=== PATIENT | female | born 1995 | race Caucasian/White ===

== ENCOUNTER 2021-02-23 09:31 | Inpatient (IN) ==
[2021-02-23] MEDS ORDERED: Famotidine 20 MG/2 ML VIAL IVP ONE (09:41)
[2021-02-23] MEDS ORDERED: Oxytocin 20 units/ LR 1000 mL 20 UNIT/1,000 ML BAG IVC ONE (09:41)
[2021-02-23] MEDS ORDERED: Metoclopramide 10 MG/2 ML VIAL IVP ONE (09:41)
[2021-02-23] MEDS ORDERED: Ringers Solution, Lactated 1,000 ML IVC ONE (09:41)
[2021-02-23] MEDS ORDERED: CeFAZolin 2,000 MG/120 ML BAG IVPB ONE (09:41)
[2021-02-23] MEDS ORDERED: Ringers Solution, Lactated 1,000 ML IVC SCH ×3 (09:45→16:56)
[2021-02-23 10:41] LABS: Amphetamine Screen,Urine Negative ng/mL (Cutoff=1000); Barbiturate Screen,Urine Negative ng/mL (Cutoff=200); Benzodiazepines Screen,Urine Negative ng/mL (Cutoff=200); Cannabinoid Screen,Urine Negative ng/mL (Cutoff = 50); Cocaine Screen,Urine Negative ng/mL (Cutoff= 300); Opiate Screen,Urine Negative ng/mL (Cutoff=300); Phencyclidine Screen,Urine Negative ng/mL (Cutoff=25)
[2021-02-23] MEDS ORDERED: Ondansetron 4 MG/2 ML VIAL IVP PRN ×2 (10:46→16:56)
[2021-02-23] MEDS ORDERED: *HR* HYDROmorphone PF 0.5 MG/0.5 ML SYRINGE IVP PRN (10:46)
[2021-02-23] MEDS ORDERED: Promethazine 6.25 MG in Water for inj. (sterile) 20 ML IVPB PRN (10:46)
[2021-02-23 10:51] LABS: Basophils % 0.3 %; Eosinophils % 0.3 %; Hematocrit 34.1 % (35.3-44.9); Immature Granulocytes % 0.4 % (0-4); Lymphocytes # 1.2 K/mcL (0.6-4.6); Lymphocytes % 15.4 %; Mean Corpuscular HGB Conc 32.3 g/dL (31.6-35.5); Mean Corpuscular Volume 83.6 fL (83.0-100.0); Mean Platelet Volume 10.2 fL (9.4-12.4); Monocytes # 0.5 K/mcL (0.0-1.3); Monocytes % 6.1 %; Neutrophils # 6.2 K/mcL (1.6-8.9); Platelet Count 275 K/mcL (140-400); Red Blood Count 4.08 M/mcL (3.82-4.97); Red Cell Distribution Width 13.8 % (11.5-14.5); Segmented Neutrophils % 77.5 %
[2021-02-23 11:05] LABS: Influenza A PCR Negative (Negative); Influenza B PCR Negative (Negative); Resp. Syncytial Virus PCR Negative (Negative); SARS-CoV-2 by PCR (In House) Negative (Negative)
[2021-02-23] MEDS ORDERED: EPHEDrine 50 MG/ML VIAL ONE (11:46)
[2021-02-23] MEDS ORDERED: *HR* Morphine Sulfate/PF 10 MG/10 ML AMPUL ONE (11:46)
[2021-02-23] MEDS ORDERED: Ondansetron 4 MG/2 ML VIAL ONE (11:46)
[2021-02-23] MEDS ORDERED: *HR* FentaNYL (PF) 100 MCG/2 ML VIAL ONE (11:46)
[2021-02-23] MEDS ORDERED: Acetaminophen IV 1,000 MG/100 ML BAG IVPB ONE (11:47)
[2021-02-23] MEDS ORDERED: Simethicone 80 MG TAB.CHEW PO PRN (16:56)
[2021-02-23] MEDS ORDERED: Metoclopramide 10 MG/2 ML VIAL IVP PRN (16:56)
[2021-02-23] MEDS ORDERED: Oxytocin 20 units/ LR 1000 mL 20 UNIT/1,000 ML BAG IVC SCH (16:56)
[2021-02-23] MEDS ORDERED: *HR* OxyCODONE Immed Rel 5 MG TABLET PO PRN (16:56)
[2021-02-23] MEDS: Acetaminophen 325 MG TABLET PO SCH (19:55)
[2021-02-24] MEDS: Ibuprofen 600 MG TABLET PO SCH ×3 (00:03→12:37)
[2021-02-24] MEDS: Acetaminophen 325 MG TABLET PO SCH ×3 (03:34→15:24)
[2021-02-24 04:29] LABS: Basophils % 0.3 %; Eosinophils % 0.1 %; Hematocrit 24.9 % (35.3-44.9); Immature Granulocytes % 0.3 % (0-4); Lymphocytes # 1.7 K/mcL (0.6-4.6); Lymphocytes % 15.6 %; Mean Corpuscular HGB Conc 32.9 g/dL (31.6-35.5); Mean Corpuscular Hemoglobin 27.6 pg (28.0-33.3); Mean Corpuscular Volume 83.8 fL (83.0-100.0); Mean Platelet Volume 10.2 fL (9.4-12.4); Monocytes # 0.9 K/mcL (0.0-1.3); Monocytes % 8.1 %; Neutrophils # 8.3 K/mcL (1.6-8.9); Platelet Count 271 K/mcL (140-400); Red Blood Count 2.97 M/mcL (3.82-4.97); Red Cell Distribution Width 13.8 % (11.5-14.5); Segmented Neutrophils % 75.6 %; White Blood Count 10.9 K/mcL (4.3-11.1)
[2021-02-24 04:30] LABS: Hemoglobin 8.2 g/dL (11.5-15.4)
[2021-02-24] MEDS ORDERED: Prenatal Vit/FA 1 EACH TABLET PO SCH (09:00)
[2021-02-24 11:35] VITALS: TEMP 98.2
[2021-02-24 15:42] VITALS: BP 113/69; PULSE 95; O2SAT 98
== END 2021-02-24 16:12 | disposition home or self-care (01) | DRG 788 ==
LOC: 1NENULAB 09:31 → 1NENUOBS 16:54
PROVIDERS: ADMIT Obstetrics & Gynecology; ATTEND Obstetrics & Gynecology